=== PATIENT | female | born 1985 | race Caucasian/White ===

== ENCOUNTER → 2018-05-12 13:53 | Outpatient (CLI) | payer BC, SELFPAY ==
[2018-05-18 11:45] LABS: HPV Reflexed? NOT INDICATED
== END ==
PROVIDERS: Visit Provider Obstetrics & Gynecology
DX: Z12.4 Encounter for screening for malignant neoplasm of cervix (principal)
CPT/HCPCS: 88175; G0145

== ENCOUNTER 2021-12-18 09:06 | Outpatient (CLI) | payer BC, SELFPAY ==
[2021-12-23 21:34] LABS: HPV APTIMA, High Risk Negative (Negative)
== END 2021-12-18 23:59 | disposition home or self-care (01) ==
LOC: LABSPEC 09:09
PROVIDERS: Visit Provider Student in an Organized Health Care Education/Training Program
DX: Z12.4 Encounter for screening for malignant neoplasm of cervix (principal)
CPT/HCPCS: 87624; 88175; G0145

== ENCOUNTER → 2025-08-30 | Outpatient (CLI) | payer BC, SELFPAY ==
[2025-09-02 19:08] LABS: HPV APTIMA, High Risk Negative (Negative)
== END | disposition home or self-care (01) ==
LOC: LABSPEC 11:53
PROVIDERS: PCP Family Medicine; Visit Provider Advanced Practice Midwife
DX: Z12.4 Encounter for screening for malignant neoplasm of cervix (principal)
CPT/HCPCS: 87624; 88175; G0145